=== PATIENT | female | born 1965 | race Caucasian/White ===

== ENCOUNTER 2021-08-06 14:36 | Outpatient (CLI) | payer MEDICARE, MEDICAID, SELFPAY ==
--- NOTE | ~2021-08-06 | MR_ITS ---
EXAMINATION: MR brain/brain stem wo con EXAM DATE: 08/06/2021 15:33 INDICATION: R51.9 - Headache, unspecified TECHNIQUE: Multi-sequential, multiplanar MR images of the brain, brainstem, internal auditory canals were obtained without contrast. Whole brain sagittal T1, axial diffusion, gradient echo (T2*), T1, T 2, FLAIR sequences obtained. High resolution coronal 3-D FIESTA, coronal T1 FSE, axial T1 FSPGR of t he internal auditory canals. There is no prior study for comparison. FINDINGS: No evidence of mastoid or middle ear opacification. The 7th/8th cranial nerve complexes a re symmetric, normal in course and caliber. No cerebellopontine angle masses. Posterior fossa unrem arkable. There are scattered white matter signal hyperintensities, which are nonspecific but most likely micro angiopathy. There are no areas of restricted diffusion to suggest acute infarction. There is no acut e hemorrhage seen on the T2*, a hemosiderin sensitive sequence. No intraparenchymal brain mass. The ventricles are normal in size. There are no extra-axial collections. Flow voids are seen in the cer ebral arteries on the T2-weighted sequences consistent with their expected patency. The orbits are u nremarkable. Soft tissue is unremarkable. IMPRESSION: 1. 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 2. No acute brain findings. Reviewed, dictated and finalized at location A.
== END 2021-08-06 14:37 | disposition home or self-care (01) ==
LOC: ANHIMG 14:44
PROVIDERS: PCP Family Medicine; Visit Provider Nurse Practitioner
DX: G89.29 Other chronic pain (principal); R42 Dizziness and giddiness; R51.9 Headache, unspecified
CPT/HCPCS: 70551